=== PATIENT | female | born 1970 | race Caucasian/White ===

== ENCOUNTER 2016-08-21 14:45 | Emergency (ER) | payer OTHER ==
[~2016-08-21] VITALS: Ht 172.7 cm; Wt 96.6 kg
[~2016-08-21 14:45] MED LIST: KLONOPIN0.5 M1 PO; PROZAC20 MG PO; QUDEXY XR200 MG PO; REQUIP1 MG PO
== END 2016-08-21 17:20 | disposition short-term general hospital (02) ==
LOC: ER 14:45
DX: F41.1 Generalized anxiety disorder (principal); F43.0 Acute stress reaction; R56.9 Unspecified convulsions; I25.10 Atherosclerotic heart disease of native coronary artery without angina pectoris; Z79.82 Long term (current) use of aspirin; Z79.899 Other long term (current) drug therapy; F32.9 Major depressive disorder, single episode, unspecified
CPT/HCPCS: J2060